=== PATIENT | female | born 1945 | race Caucasian/White ===

== ENCOUNTER 2020-05-03 13:39 | Emergency (ER) | payer MEDICARE ==
[~2020-05-03] VITALS: Ht 165.1 cm; Wt 61.4 kg
[~2020-05-03 13:39] MED LIST: PERCOCET 5/321 UDTAB PO
[2020-05-03 13:46] VITALS: BP 113/89; TEMP 97.8
[2020-05-03 14:18] VITALS: PULSE 86
== END 2020-05-03 14:18 | disposition home or self-care (01) ==
LOC: COL.ER 13:39
DX: S09.90XA Unspecified injury of head, initial encounter (principal); W01.198A Fall on same level from slipping, tripping and stumbling with subsequent striking against other object, initial encounter